=== PATIENT | female | born 1965 | race Caucasian/White ===

== ENCOUNTER 2022-02-22 09:56 | Inpatient (IN) | payer BC, SELFPAY ==
[2022-02-22] VITALS (8 sets, daily range): BP systolic 112–159; BP diastolic 68–92; PULSE 70–90; RESP 16–20; TEMP 36.6–37.4; O2SAT 95–98; BMI 35.9
--- NOTE | ~2022-02-22 | MR_ITS ---
MRI OF THE BRAIN WITHOUT IV CONTRAST INDICATION: Stroke. COMPARISON: CTA head and neck 02/22/2022. TECHNIQUE: Multiplanar multisequence MR imaging of the brain was obtained without IV contrast. FINDINGS: As discussed on the previous CTA, there is an evolving acute infarct within the left parasagittal frontoparietal lobe in the left TAMIKO territory. Cytotoxic edema results in mild local cerebral sulcal effacement without midline shift. There is no hemorrhagic transformation. There is no hydrocephalus, extra-axial surface collection, or herniation. The major flow voids at the skull base are preserved. There is no intracranial hemorrhage on the gradient recalled echo acquisition. The midline structures are normal. The cerebellar tonsils are normally positioned. The cerebellum and brainstem are normal. The craniocervical junction is normal. Osseous marrow signal intensity is homogenous. The visualized soft tissues are unremarkable. MR/MR head/brain wo con IMPRESSION: As discussed on the previous CTA, there is an evolving acute infarct within the left parasagittal frontoparietal lobe in the left TAMIKO territory. Cytotoxic edema results in mild local cerebral sulcal effacement without midline shift. There is no hemorrhagic transformation.
--- NOTE | ~2022-02-22 | CT_ITS ---
EXAMINATION: CTA OF THE HEAD AND NECK CLINICAL INFORMATION: Right-sided weakness. COMPARISON: None. TECHNIQUE: Test bolus sequences followed by intravenous administration 85 mL of Omnipaque 350. Helical imaging was performed in the axial plane from the mediastinum to the skull vertex. Delayed postcontrast imaging of the head was also performed. The data was processed at the fastener technologist's workstation for generation of MIP sequences. Three-dimensional volume rendered reformatted images were also generated at an offline 3-D workstation. Stenoses are assessed in accordance with NASCET criteria unless otherwise indicated. This CT examination was performed using dose optimization techniques as appropriate, variously including the following: *Automated exposure control *Adjustment of mA and/or kV according to patient size (this includes techniques or standardized protocols for targeted exams where dose is matched to indication/reason for exam; i.e. extremities or head) *Use of iterative reconstruction technique DLP: 2389 mGy-cm. FINDINGS: CT head: Superior to the lateral ventricles, there is loss of polnaco-white matter differentiation in the medial aspect of the left frontal lobe. There is an additional patchy area of loss of polanco-white matter differentiation affecting a portion of the left paracentral lobule and medial left parietal lobe posteriorly. There is no evidence of acute intracranial hemorrhage. No abnormal mass effect or midline shift is seen. No extra-axial fluid collections are identified. There is no abnormal enhancement. The ventricles are normal in size. The osseous structures and soft tissues are normal. The mastoid air cells and visualized portions of the paranasal sinuses are well aerated. CTA neck: The imaged aortic arch and origins of the great vessels are normal. The common carotid arteries are widely patent. The carotid bifurcations are normal. The cervical internal carotid arteries are normal. The vertebral arteries opacify normally and are of normal caliber. There is what may represent a 0.9 x 1 x 1.8 cm thyroglossal duct cyst between the midline hyoid bone and thyroid cartilage embedded within the strap muscles. Moderate multilevel cervical spondylosis noted. The imaged portions of the lungs are clear. A small calcified granuloma is visible in the right upper lobe. CTA head: There is significant stenotic disease and at least a partial occlusion in the A2 segment of the left TAMIKO vasculature. The distal portions of the left TAMIKO vasculature are difficult to assess resolve due to mixed arteriovenous timing of the contrast bolus. The intradural vertebral arteries and basilar artery are normal. The posterior cerebral arteries are widely patent. The internal carotid arteries are of normal caliber. The right TAMIKO and bilateral MCA vascular complexes bilaterally are normal. The venous sinuses opacify normally. CT/CT angio head neck IMPRESSION: 1. Areas of loss of polanco-white matter differentiation superior to the lateral ventricles in the medial left frontoparietal lobes, corresponding to the left TAMIKO vascular territory, most suspicious for areas of acute infarction. 2. Significant stenotic disease and at least partial occlusion in the A2 segment of the left TAMIKO vasculature. The distal portions of the left TAMIKO vasculature are difficult to assess resolve due to mixed arteriovenous timing of the contrast bolus. 3. Normal CT angiogram of the neck. 4. Suspected incidental 0.9 x 1 x 1.8 cm thyroglossal duct cyst. 5. Imaging findings reported to HENOK Sims at 3:45 PM on 02/22/2022.
--- NOTE | 2022-02-22 12:29 | ED_ITS ---
HPI - General Adult General Chief complaint: General Medical Stated complaint: R Leg Numbness No Injury Time Seen by Provider: 02/22/22 12:28 Source: patient Mode of arrival: ambulatory Limitations: no limitations History of Present Illness HPI narrative: 56-year-old female no significant past medical history presents to the emergency department, with her , for complaints of right leg weakness and heavine ss with difficulty ambulating starting around 11 a.m. yesterday. She states she had difficulty with ambulation and was dragging the leg, however; she was able to walk around [place] 2-3 times with improvement in her ambulation at that time per patient. She also reports she had right arm weakness, which has resolved at this time. She denies any decreased sensation, pins and needle sensation, or p ain in her right lower extremity. She denies any back discomfort, loss of bowel or bladder, urinary hesitancy, weakness and left lower extremity, headache, vision changes. She denies any trauma or known injury. Related Data Home Medications Medication Instructions Recorded Confirmed No Known Home Meds 02/22/22 02/22/22 Allergies Allergy/AdvReac Type Severity Reaction Status Date / Time No Known Allergies Allergy Verified 02/22/22 10:35 Review of Systems Review of Systems: In addition to documented HPI above, the additional ROS was obtained: CONSTITUTIONAL: Denies fever, chills, fatigue, headache, night sweats, or weight loss EYES: Denies vision changes, eye pain, swelling, redness, foreign body, discharge ENT: Hearing normal. Denies sore throat, swallowing difficulty, congestion, ear pain, no hoarseness CV: Denies chest pain or epigastric pain. No edema, palpitations, or dyspnea on exertion RESP: Denies shortness of breath. Denies cough, wheezing, dyspnea. Denies smoke exposure GI: .Denies abdominal pain. Denies nausea, vomiting, constipation or diarrhea. No melena or hematochezia. : Denies irregular bleeding, and dysuria, urinary frequency, urinary incontinence/retention, urgency. Denies flank pain, hematuria MSK: Denies recent trauma, joint swelling or pain SKIN: Denies no lesions, rashes, or sores NEURO: Denies new numbness, tingling, dizziness, paresthesias. No loss of consciousness. Denies headache ENDOCRINE: Denies unexpected weight loss. Denies polyuria, polydipsia. No temperature intolerance HEME/ONC: Denies bleeding disorders, easy bruising, or lymphadenopathy PSYCH: Denies anxiety/panic, depression, SI/HI, or social issues. Yes all other systems are reviewed and are negative PMFSH Past Medical History Attestation statement: The following information was validated with the patient. Source: old records reviewed and obtained from family Social History Social History Advance Directives: Yes Advance Directives Information Provided: No Advance Directives on File: No Physical Exam ED Vital Signs: Vital Signs - 24 hr 02/22/22 10:28 02/22/22 13:07 02/22/22 16:22 Temperature 99.3 F 98.3 F 98.5 F Pulse Rate 90 72 73 Respiratory Rate 20 16 18 Blood Pressure 142/89 H 146/81 H 153/70 H Pulse Oximetry 96 95 98 Oxygen Delivery Method Room Air Room Air Room Air BMI result Body Mass Index 35.9 Const General: cooperative, alert and awake Nutritional Appearance: well nourished Orientation/consciousness: patient oriented x3 Limitations: physical limitations [facility] Head: Yes normal to inspection, Yes normocephalic and Yes atraumatic Ears: hearing grossly normal bilaterally and external ears normal General nose exam: Normal external nose present and Normal nares present Face and sinus: Yes normal facial exam and Yes face symmetric Mouth: Normal oral and palatal mucosa present Teeth and gingiva: dentition normal Throat: Yes posterior oropharynx normal and Yes uvula midline Eyes General: appearance normal, both eyes and all related structures Visual Lobato: normal visual lobato by confrontation Alignment and Position: alignment normal Periorbital: periorbital findings normal Eyelids: Yes eyelids normal Conjunctivae: conjunctivae normal Sclerae: sclerae normal Corneas: corneas normal Pupils: Equal, round and reactive pupils present EOM: EOMs intact bilaterally Neck Neck: Yes normal visual inspection, Yes full ROM and Yes no lymphadenopathy Chest Chest palpation & inspection: normal inspection of the chest Resp Effort & Inspection: normal respiratory effort and not labored Auscultation: clear to auscultation bilaterally, no crackles, no rhonchi and no wheezes Cardio Rate: regular rate Rhythm: regular rhythm GI Inspection: Yes normal to inspection Palpation (GI): Soft to palpation and nontender Auscultation: normal bowel sounds General: Yes no CVA tenderness Back/Spine/Pelvis Back: no CVA tenderness Cervical Spine: cervical ROM normal Thoracic/Lumbar Spine: thoraco-lumbar ROM normal, No mass, No thoracic spinal tenderness and No lumbar spinal tenderness Sacrum: no ecchymosis Skin General skin exam: no rashes or lesions noted Neuro General: patient oriented x3 Cranial nerves: Yes Equal, round and reactive pupils present, Yes Normal facial strength present, Yes Midline tongue present, Yes Ability to bilaterally rotate head present and Yes Ability to bilaterally elevate shoulders present Cognition (Neuro): normal cognition Gait exam (Neuro): Ataxic gait present Motor exam (neuro): Other motor observations present (strength 5/5 BUE and LLE. strength 2/5 in RLE) Extrem General: Yes normal to inspection Right upper extremity: normal to inspection, full ROM and normal capillary refill Left upper extremity: normal to inspection, full ROM and normal capillary refill Right lower extremity: normal to inspection and normal capillary refill; no edema and joint enlargement noted Left lower extremity: normal to inspection, full ROM and normal capillary refill Psych Appearance: grossly normal Mental Status: mental status grossly normal Speech and movement: Normal speech and movement present Affect: normal affect Attitude: cooperative Thought process: Normal thought process present Thought content: Normal thought content present Insight: Good insight present (Psych) Judgement: Good judgement present (Psych) NIH Stroke Scale Internal: Initial- Upon Arrival Level of Consciousness: Alert Level of Consciousness Questions: Answers both questions correctly Level of Consciousness Commands: Performs both tasks correctly Best Gaze: Normal Visual: No visual loss Facial Palsy: Normal Motor Arm (Right): No drift Motor Arm (Left): No drift Motor Leg (Right): Some effort against gravity Motor Leg (Left): No drift Limb Ataxia: Present in one limb Sensory: Normal Best Language: No aphasia Dysarthia: Normal Extinction and Inattention: No abnormality Score: 3 Course Course Course Narrative: 1250: CTA head and blood work ordered to rule in/out stroke, MS, or other intracranial pathology based on HPI and PE. 1430: CT completed and pending read 1545: Critical CTA head result called in to me by Dr Lemus. Pt with areas of loss of polanco-white matter differentiation superior to the lateral ventricles in the medial left frontoparietal lobes, corresponding to the left TAMIKO vascular territory, most suspicious for areas of acute infarction and significant stenotic disease and at least partial occlusion in the A2 segment of the left TAMIKO vasculature. The distal portions of the left TAMIKO vasculature are difficult to assess resolve due to mixed arteriovenous timing of the contrast bolus. Last known well time at 11 am 02/21/22 and pt is not a candidate at this time for TPA as symptom onset is greater than 29 hours ago. ASA 81 mg ordered. Coags, lipids, A1c, and covid ordered. EKG ordered to rule out afib, as initial complaint was not cardiac related EKG was not done at initial evaluation. 1615: EKG NSR with inferior infarct, age undetermined. No previous EKGs to compare to. Discussed patient with hospitalist, Dr. Dupree, who agrees to admit the patient. 1715: Patient able to swallow thin liquids without issue. Patient educated to take small bites and chew well being mindful of swallowing. Medications Administered Discontinued Medications Generic Name Dose Route Start Last Admin Trade Name Freq PRN Reason Stop Dose Admin Aspirin 81 mg 02/22/22 15:54 02/22/22 16:56 Aspirin 81 Mg Tab.Chew PO 02/22/22 15:55 81 mg ONCE ONE Administration Iohexol 100 ml 02/22/22 14:59 02/22/22 14:59 Iohexol 350 Mg/Ml 100 Ml Infus..Btl IV 02/22/22 15:00 70 ml ONCE ONE Administration Medical Decision Making Medical Decision Making MDM Narrative: 56-year-old female no significant past medical history presents to the emergency department, with her , for complaints of right leg weakness and heaviness with difficulty ambulating starting around 11 a.m. yesterday with difficulty ambulating and sensation of dragging her leg. Physical exam with right leg weakness with 2/5 strength. Moving BUE and LLE with good 5/5 strength. Pt ambulating with assist of her with ataxic gait. No facial asymmetry, equal strength with shoulder shrug, hand grasps, and arm strength. Initial blood work unremarkable. CTA completed showing areas of loss of polanco-white matter differentiation superior to the lateral ventricles in the medial left frontoparietal lobes, corresponding to the left TAMIKO vascular territory, most maria spicious for areas of acute infarction and significant stenotic disease and at least partial occlusion in the A2 segment of the left TAMIKO vasculature. EKG NSR 73 bpm with inferior infarct, age undetermined: no previous EKGs available for review. Additional blood work ordered for coags, A1c, lipids. Covid screen sent. Plan for admission for further treatment and management. HPI, PE, diagnostics, and plan reviewed with patient and family an on board with plan for admission. Discussed with hospitalist, Dr. Dupree, who agrees to admit the patient. Lab Data MDM Lab Attestation statement: I reviewed the patient's lab results. Result Diagrams: 02/22/22 13:30 02/22/22 13:30 Labs: Lab Results 02/22/22 02/22/22 02/22/22 Range/Units 13:29 13:30 13:30 WBC 8.1 (4.8-10.8) X10*3/uL RBC 4.44 (4.20-5.50) X10*6/uL Hgb 13.7 (12.0-16.0) g/dl Hct 41.1 (37.0-47.0) % MCV 92.6 (80.0-98.0) fL MCH 30.9 (27.0-33.0) pg MCHC 33.3 (31.0-35.0) g/dl RDW 13.2 (11.0-16.0) % Plt Count 217 (160-400) X10*3/uL MPV 11.0 (9.4-12.3) fL Immature Gran % (Auto) 0.4 (0.0-0.4) % Neut % (Auto) 69.5 (45-73) % Lymph % (Auto) 23.0 (20-40) % [place] % (Auto) 5.7 (2-11) % Eos % (Auto) 0.7 (0-4) % Baso % (Auto) 0.7 (0-2) % Lymph # (Auto) 1.9 (1.2-4.9) X10*3/uL [place] # (Auto) 0.5 (0.1-1.2) X10*3/uL Eos # (Auto) 0.1 (0.0-0.4) X10*3/uL Baso # (Auto) 0.1 (0.0-0.2) X10*3/uL Abs Immat Gran (auto) 0.03 (0.00-0.03) X10*3/uL Absolute Neuts (auto) 5.6 (2.0-8.3) x10*3/uL Absolute Nucleated RBC 0.000 (0.0-0.012) X10*3/uL Nucleated RBC % (auto) 0.0 (0.0-0.2) /100WBC ESR 7 (0-20) MM/HR Sodium 140 (135-145) mmol/L Potassium 4.2 (3.3-5.1) mmol/L Chloride 105 (96-108) mmol/L Carbon Dioxide 26 (22-29) mmol/L Anion Gap 13 (12-20) BUN 15 (9-16) mg/dL Creatinine 0.75 (0.5-1.4) mg/dL Estim Creat Clear Calc 114.2 Estimated GFR > 60 Random Glucose 94 (60-115) mg/dL Calcium 10.1 (8.4-10.2) mg/dL Total Bilirubin 0.5 (0.0-1.0) mg/dL AST 16 (5-31) U/L ALT 21 (0-31) U/L Alkaline Phosphatase 85 (39-117) U/L Total Protein 7.4 (6.5-8.0) g/dL Albumin 4.7 (3.5-5.0) g/dL Radiology Impression Discussion of test interpretation with radiology: I have reviewed the radiologist's reading. Radiologist Impression: EXAMINATION: CTA OF THE HEAD AND NECK CLINICAL INFORMATION: Right-sided weakness. COMPARISON: None. TECHNIQUE: Test bolus sequences followed by intravenous administration 85 mL of Omnipaque 350. Helical imaging was performed in the axial plane from the mediastinum to the skull vertex. Delayed postcontrast imaging of the head was also performed. The data was processed at the biotechnologist's workstation for generation of MIP sequences. Three-dimensional volume rendered reformatted images were also generated at an offline 3-D workstation. Stenoses are assessed in accordance with NASCET criteria unless otherwise indicated. This CT examination was performed using dose optimization techniques as appropriate, variously including the following: *Automated exposure control *Adjustment of mA and/or kV according to patient size (this includes techniques or standardized protocols for targeted exams where dose is matched to indication/reason for exam; i.e. extremities or head) *Use of iterative reconstruction technique DLP: 2389 mGy-cm. FINDINGS: CT head: Superior to the lateral ventricles, there is loss of polanco-white matter differentiation in the medial aspect of the left frontal lobe. There is an additional patchy area of loss of polanco-white matter differentiation affecting a portion of the left paracentral lobule and medial left parietal lobe posteriorly. There is no evidence of acute intracranial hemorrhage. No abnormal mass effect or midline shift is seen. No extra-axial fluid collections are identified. There is no abnormal enhancement. The ventricles are normal in size. The osseous structures and soft tissues are normal. The mastoid air cells and visualized portions of the paranasal sinuses are well aerated. ? CTA neck: The imaged aortic arch and origins of the great vessels are normal. The common carotid arteries are widely patent. The carotid bifurcations are normal. The cervical internal carotid arteries are normal. The vertebral arteries opacify normally and are of normal caliber. There is what may represent a 0.9 x 1 x 1.8 cm thyroglossal duct cyst between the midline hyoid bone and thyroid cartilage embedded within the strap muscles. Moderate multilevel cervical spondylosis noted. The imaged portions of the lungs are clear. A small calcified granuloma is visible in the right upper lobe. CTA head: There is significant stenotic disease and at least a partial occlusion in the A2 segment of the left TAMIKO vasculature. The distal portions of the left TAMIKO vasculature are difficult to assess resolve due to mixed arteriovenous timing of the contrast bolus. The intradural vertebral arteries and basilar artery are normal. The posterior cerebral arteries are widely patent. The internal carotid arteries are of normal caliber. The right TAMIKO and bilateral MCA vascular complexes bilaterally are normal. The venous sinuses opacify normally. CT/CT angio head neck IMPRESSION: 1.? Areas of loss of polanco-white matter differentiation superior to the lateral ventricles in the medial left frontoparietal lobes, corresponding to the left TAMIKO vascular territory, most suspicious for areas of acute infarction. 2.? Significant stenotic disease and at least partial occlusion in the A2 segment of the left TAMIKO vasculature. The distal portions of the left TAMIKO vasculature are difficult to assess resolve due to mixed arteriovenous timing of the contrast bolus. 3.? Normal CT angiogram of the neck. 4.? Suspected incidental 0.9 x 1 x 1.8 cm thyroglossal duct cyst. 5.? Imaging findings reported to HENOK Sims at 3:45 PM on 02/22/2022. ? Dictated By: HERMINIA LEMUS MD Signed By: <Electronically signed by HERMINIA LEMUS MD in [place] 02/22/22 1546 DD/ 1500 TD/TT:? Wardrobe Stylist: DOMINIC Core Measures AMI core measures followed: Yes Discharge Plan Discharge Clinical Impression: Stroke Patient Disposition: Admitted As Inpatient Prescriptions: No Action No Known Home Meds
[2022-02-22 13:34] LABS: MANUAL DIFF FLAG NO
[2022-02-22 13:39] LABS: Basophils Absolute Auto 0.1 X10*3/uL (0.0-0.2); Basophils Percent Auto 0.7 % (0-2); Eosinophils Absolute Auto 0.1 X10*3/uL (0.0-0.4); Eosinophils Percent Auto 0.7 % (0-4); Hematocrit 41.1 % (37.0-47.0); Hemoglobin 13.7 g/dl (12.0-16.0); Imm Gran Abs Auto 0.03 X10*3/uL (0.00-0.03); Imm Gran Pct Auto 0.4 % (0.0-0.4); Lymphocytes Absolute Auto 1.9 X10*3/uL (1.2-4.9); Mean Corpuscular HGB Conc 33.3 g/dl (31.0-35.0); Mean Corpuscular Hemoglobin 30.9 pg (27.0-33.0); Mean Corpuscular Volume 92.6 fL (80.0-98.0); Monocytes Absolute Auto 0.5 X10*3/uL (0.1-1.2); Monocytes Percent Auto 5.7 % (2-11); Neutrophils Absolute Auto 5.6 x10*3/uL (2.0-8.3); Neutrophils Percent Auto 69.5 % (45-73); Platelet Count 217 X10*3/uL (160-400); Red Blood Count 4.44 X10*6/uL (4.20-5.50); Red Cell Distribution Width 13.2 % (11.0-16.0); White Blood Count 8.1 X10*3/uL (4.8-10.8)
[2022-02-22 13:55] LABS: Alanine Aminotransferase 21 U/L (0-31); Albumin Level 4.7 g/dL (3.5-5.0); Alkaline Phosphatase 85 U/L (39-117); Anion Gap 13 (12-20); Aspartate Amino Transferase 16 U/L (5-31); Bilirubin Total 0.5 mg/dL (0.0-1.0); Blood Urea Nitrogen 15 mg/dL (9-16); Calcium 10.1 mg/dL (8.4-10.2); Carbon Dioxide 26 mmol/L (22-29); Chloride 105 mmol/L (96-108); Creatinine Clr Calc Pharmacy 114.2; Estimated Glomerular Filt Rate > 60; Glucose Random 94 mg/dL (60-115); Potassium 4.2 mmol/L (3.3-5.1); Sodium 140 mmol/L (135-145); Total Protein 7.4 g/dL (6.5-8.0)
[2022-02-22 14:45] LABS: Erythrocyte Sedimentation Rate 7 MM/HR (0-20)
[2022-02-22] MEDS: iohexoL 350 MG/ML 100 ML INFUS..BTL IV (14:59)
--- NOTE | 2022-02-22 15:57 | ECG_ITS ---
Test Reason : R LEG NUMBNESS Blood Pressure : / mmHG Vent. Rate : 073 BPM Atrial Rate : 073 BPM P-R Int : 150 ms QRS Dur : 078 ms QT Int : 392 ms P-R-T Axes : 062 -15 000 degrees QTc Int : 431 ms Normal sinus rhythm cannot exclude old Inferior infarct , age undetermined Abnormal ECG No previous ECGs available Referred By: Samantha Aragon Electronically Signed By:ANTOINE DOSS
[2022-02-22] MEDS: Aspirin 81 MG TAB.CHEW PO (16:56)
--- NOTE | 2022-02-22 16:57 | PHA.MEDREC ---
Pharmacy Consult ? Medication Reconciliation Pharmacy has completed the medication reconciliation.
[2022-02-22 17:43] LABS: Prothrombin Time 10.9 SEC (10.0-13.1)
--- NOTE | 2022-02-22 17:43 | P.HPHOSP_ITS ---
History of Present Illness Date of Service: 02/22/22 Chief Complaint: right sided weakness 56 year old female with no medical issue who comes with right lower extremity that she first noticed during the day yersterday around 11 am, she had difficulty walking and was draging the foot, this got better and was able to later go to [facility] and walk around, weakness returned today and alarmed her prompting her to come to ED. CTA head and neck suggest possible acute infarct. Review of Systems Review of Systems: weakness in right leg, heavines no headache, no trouble speaking, no trouble seeing Yes all other systems are reviewed and are negative PMFSH Pertinent family history: maternal aunt with stroke Social History Advance Directives: Yes Advance Directives Information Provided: No Advance Directives on File: No Meds Allergies Allergy/AdvReac Type Severity Reaction Status Date / Time No Known Allergies Allergy Verified 02/22/22 10:35 Active Medications: Current Medications Pharmacy Consult (Consult Rx Perform Med Rec) 1 each MISCELLANE ONCE PRN PRN Reason: Consult order Home Medications Medication Instructions Recorded Confirmed Last Taken Type No Known Home Meds 02/22/22 02/22/22 Unknown History Physical Exam Vital Signs and Narrative: Vital Signs: Last Vital Signs Temp 98.5 F 02/22/22 16:22 Pulse 73 02/22/22 16:22 Resp 18 02/22/22 16:22 BP 153/70 H 02/22/22 16:22 Pulse Ox 98 02/22/22 16:22 O2 Del Method 02/22/22 16:22 BMI result Body Mass Index 35.9 Const: Other: Constitutional: Alert, in no distress, overweight. Mental Status: Oriented to person, place and time. Eyes: Pupils are equal, round and reactive to light. Ear, Nose and Throat: Oropharynx clear, mucous membranes moist. Ears and nose without eformities. Trachea midline. Respiratory: Clear to auscultation. No wheezing, rales or rhonchi. Cardiovascular: S1 S2 regular. No murmurs, rubs or gallops. Gastrointestinal: Abdomen soft, non-tender, non-distended. Normal bowel sounds.? Neurologic: Cranial nerves II-XII grossly intact. Strenght in the right leg is signficantly weak compare to the left, arm strenght are equal Skin: No rashes or lesions.? Musculoskeletal: No cyanosis or clubbing. Psychiatric: Normal mood and affect? Results Labs CBC and Chem 7: 02/22/22 13:30 02/22/22 13:30 Labs: Laboratory Results - last 24 hr 02/22/22 02/22/22 02/22/22 13:29 13:30 13:30 MCV 92.6 MCH 30.9 MCHC 33.3 RDW 13.2 Plt Count 217 MPV 11.0 Immature Gran % (Auto) 0.4 Neut % (Auto) 69.5 Lymph % (Auto) 23.0 [place] % (Auto) 5.7 Eos % (Auto) 0.7 Baso % (Auto) 0.7 Lymph # (Auto) 1.9 [place] # (Auto) 0.5 Eos # (Auto) 0.1 Baso # (Auto) 0.1 Abs Immat Gran (auto) 0.03 Absolute Neuts (auto) 5.6 Absolute Nucleated RBC 0.000 Nucleated RBC % (auto) 0.0 ESR 7 Anion Gap 13 Estim Creat Clear Calc 114.2 Estimated GFR > 60 Random Glucose 94 Calcium 10.1 Total Bilirubin 0.5 AST 16 ALT 21 Alkaline Phosphatase 85 Total Protein 7.4 Albumin 4.7 Imaging Radiologist's Impressions: Impressions Head/Neck CTA 02/22/22 15:00 IMPRESSION: 1. Areas of loss of polanco-white matter differentiation superior to the lateral ventricles in the medial left frontoparietal lobes, corresponding to the left TAMIKO vascular territory, most suspicious for areas of acute infarction. 2. Significant stenotic disease and at least partial occlusion in the A2 segment of the left TAMIKO vasculature. The distal portions of the left TAMIKO vasculature are difficult to assess resolve due to mixed arteriovenous timing of the contrast bolus. 3. Normal CT angiogram of the neck. 4. Suspected incidental 0.9 x 1 x 1.8 cm thyroglossal duct cyst. 5. Imaging findings reported to HENOK Sims at 3:45 PM on 02/22/2022. Assessment and Plan (1) Stroke: Status: Acute Plan 56/F with no signficnat past medical history here with right leg weakness and possible finding of CT of acute stroke, not candidate for tpa d/t delay in presentation. Clinical finding suggestive of stroke but CT finding not impressive. Plan: Stroke: get MRI, ASA, Lipitor, PT/OT, Neuro eval, watch BP, Neuro checks. HLD--Chol 283, LDL 202--add Lipitor Elevated BP--monitor and no meds for now Lovneox for DVT prophylaxis. Full code Admission to span at least 2 midnights for management of acute stroke Time Spent With Patient Time: Total time managing care of this patient today ____ minutes. Quality Stroke Does the patient have a stroke diagnosis?: Yes Reason for No Anti-thrombotic by Day Two: N/A - Med Ordered VTE Prior VTE?: No VTE Risk Level:: Medical - low VTE Device Contraindication: Treatment Not Indicated VTE Drug Contraindication: N/A - Med Ordered
[2022-02-22 17:55] LABS: COVID-19 Test Negative (Negative); Cholesterol 283 mg/dL; HDL Cholesterol 52 mg/dL; IDNOW Serial# 16C4AD1C; LDL Cholesterol Calculated 202 mg/dl; Triglycerides 145 mg/dL
[2022-02-22] MEDS: Enoxaparin Sodium 40 MG/0.4 ML SYRINGE SUBCUT (19:23)
[2022-02-22] MEDS: Atorvastatin Calcium 40 MG TABLET PO (22:04)
--- NOTE | 2022-02-22 23:03 | PC.NURSE ---
Patient is alert and oriented x4. Patient denies any pain at present. No s/s of distress noted. Patient is resting in bed, call valdez within patient's reach.
[2022-02-23] VITALS (8 sets, daily range): BP systolic 119–150; BP diastolic 70–96; PULSE 68–86; RESP 12–20; TEMP 36.3–37.1; O2SAT 95–98; BMI 35.9
--- NOTE | 2022-02-23 03:57 | PC.NURSE ---
Patient requested to use a restroom. Patient required assist of 1 person and w/c d/t weakness in right leg. Patient assisted back into bed. Patient noted to be independent with bed mobility. Patient instructed to reposition herself every hour while she is awake to prevent skin breakdown. Patient requested a snack. Swallow evaluation completed, no issues with swallowing/secretion management noted. Patient provided turkey sandwich, cheese stick, and cranberry juice.
[2022-02-23 05:22] LABS: Estimated Average Glucose 111 mg/dL; Hemoglobin A1c % 5.5 %
--- NOTE | 2022-02-23 06:29 | MHC.EDTECH ---
PT SLEPT ALL NIGHT GOT UP TO USE BATHROOM X 1 ,VOID LARGE AMOUNT ,HAD A SNACK .
[2022-02-23 07:25] LABS: Cholesterol 238 mg/dL; HDL Cholesterol 42 mg/dL; LDL Cholesterol Calculated 162 mg/dl; Triglycerides 174 mg/dL
[2022-02-23] MEDS: Aspirin Enteric Coated 81 MG TABLET.DR PO (08:55)
--- NOTE | 2022-02-23 09:02 | PC.NURSE ---
MRI THIS MORNING, AMB WITH WALKER THIS WITH PT/OT CAN BEAR WEIGHT ON RT LEG IS UNABLE TO MOVE IT INDEPENDENTLY
--- NOTE | 2022-02-23 11:29 | HO.PM.IMPN ---
Subjective Subjective Date of Service: 02/23/22 Interval History: f/u on stroke, has pesistent weakness in right leg, MRI confirms stroke Review of Systems right leg weakness Physical Exam Vital Signs: Vital Signs: Last Vital Signs Temp 98.8 F 02/23/22 08:51 Pulse 71 02/23/22 08:51 Resp 16 02/23/22 08:51 BP 134/70 02/23/22 08:51 Pulse Ox 96 02/23/22 08:51 O2 Del Method 02/23/22 08:51 BMI result Body Mass Index 35.9 Const: Other: General: AO X 3, no acute distress Resp: CTA bilateral CVS: S1,S2,RRR GI: +BS, NT, no distention Skin: No rash Neuro: 2/5 strenght in right leg Psych: appropriate affect Objective Data Active Medications Acetaminophen (Acetaminophen 325 Mg Tablet) 650 mg PO Q6H PRN PRN Reason: Pain, Mild (Pain Scale 1-3) Aspirin (Aspirin Enteric Coated 81 Mg Tablet.) 81 mg PO DAILY [facility] Last Admin: 02/23/22 08:55 Dose: 81 mg Documented By: INDU Atorvastatin Calcium (Atorvastatin Calcium 40 Mg Tablet) 40 mg PO BEDTIME [facility] Last Admin: 02/22/22 22:04 Dose: 40 mg Documented By: SINCERE Enoxaparin Sodium (Enoxaparin Sodium 40 Mg/0.4 Ml Syringe) 40 mg SUBCUT Q24H [facility] Last Admin: 02/22/22 19:23 Dose: 40 mg Documented By: SINCERE Pharmacy Consult (Consult Rx Perform Med Rec) 1 each MISCELLANE ONCE PRN PRN Reason: Consult order Labs CBC & Chem 7: 02/22/22 13:30 02/22/22 13:30 Labs: Laboratory Results - last 24 hr 02/22/22 02/22/22 02/22/22 13:29 13:30 13:30 MCV 92.6 MCH 30.9 MCHC 33.3 RDW 13.2 Plt Count 217 MPV 11.0 Immature Gran % (Auto) 0.4 Neut % (Auto) 69.5 Lymph % (Auto) 23.0 Harper % (Auto) 5.7 Eos % (Auto) 0.7 Baso % (Auto) 0.7 Lymph # (Auto) 1.9 Harper # (Auto) 0.5 Eos # (Auto) 0.1 Baso # (Auto) 0.1 Abs Immat Gran (auto) 0.03 Absolute Neuts (auto) 5.6 Absolute Nucleated RBC 0.000 Nucleated RBC % (auto) 0.0 ESR 7 PT INR Anion Gap 13 Estim Creat Clear Calc 114.2 Estimated GFR > 60 Random Glucose 94 Estimat Average Glucose Hemoglobin A1c % Calcium 10.1 Total Bilirubin 0.5 AST 16 ALT 21 Alkaline Phosphatase 85 Total Protein 7.4 Albumin 4.7 Triglycerides Cholesterol LDL Cholesterol, Calc HDL Cholesterol COVID-19 (ALIX) COVID-19 [employer] 02/22/22 02/22/22 02/22/22 17:22 17:22 17:22 MCV MCH MCHC RDW Plt Count MPV Immature Gran % (Auto) Neut % (Auto) Lymph % (Auto) Harper % (Auto) Eos % (Auto) Baso % (Auto) Lymph # (Auto) Harper # (Auto) Eos # (Auto) Baso # (Auto) Abs Immat Gran (auto) Absolute Neuts (auto) Absolute Nucleated RBC Nucleated RBC % (auto) ESR PT 10.9 INR 1.0 Anion Gap Estim Creat Clear Calc Estimated GFR Random Glucose Estimat Average Glucose 111 Hemoglobin A1c % 5.5 Calcium Total Bilirubin AST ALT Alkaline Phosphatase Total Protein Albumin Triglycerides 145 Cholesterol 283 LDL Cholesterol, Calc 202 HDL Cholesterol 52 COVID-19 (ALIX) COVID-19 [employer] 02/22/22 02/23/22 17:22 06:06 MCV MCH MCHC RDW Plt Count MPV Immature Gran % (Auto) Neut % (Auto) Lymph % (Auto) Harper % (Auto) Eos % (Auto) Baso % (Auto) Lymph # (Auto) Harper # (Auto) Eos # (Auto) Baso # (Auto) Abs Immat Gran (auto) Absolute Neuts (auto) Absolute Nucleated RBC Nucleated RBC % (auto) ESR PT INR Anion Gap Estim Creat Clear Calc Estimated GFR Random Glucose Estimat Average Glucose Hemoglobin A1c % Calcium Total Bilirubin AST ALT Alkaline Phosphatase Total Protein Albumin Triglycerides 174 Cholesterol 238 LDL Cholesterol, Calc 162 HDL Cholesterol 42 COVID-19 (ALIX) Negative COVID-19 Clin [employer] See Note Assessment and Plan (1) Stroke: Status: Acute Plan 56/F with no signficnat past medical history here with right leg weakness and possible finding of CT of acute stroke, not candidate for tpa d/t delay in presentation. Clinical finding suggestive of stroke but CT finding not impressive. Plan: Stroke: get MRI shows an evolving acute infarct within the left parasagittal frontoparietal lobe in the left TAMIKO territory. Cytotoxic edema results in mild local cerebral sulcal effacement without midline shift ASA, Lipitor, Neuro eval, watch BP, Neuro checks.? HLD--Chol 283, LDL 202--added Lipitor, echo PT/OT recommends acute inpatient rehab Elevated BP--monitor and no meds for now, BP is presently normal Lovneox for DVT prophylaxis. Full code need inaptient: management of acute stroke and evolving stroke as above and will need acute rehab Time Spent With Patient Time: Total time managing care of this patient today ____ minutes. Quality Stroke Does the patient have a stroke diagnosis?: Yes Reason for No Anti-thrombotic by Day Two: N/A - Med Ordered VTE Prior VTE?: No VTE Risk Level:: Medical - low VTE Device Contraindication: Treatment Not Indicated VTE Drug Contraindication: N/A - Med Ordered
--- NOTE | 2022-02-23 11:34 | P.CNNE_ITS ---
History of Present Illness Data of Consult Service Date: 02/23/22 Primary Care Provider: Gaurav Mora MD [facility] Reason for consult: Stroke 56 years old woman who reported that she had atrial fibrillation at age 50 but she was not on any anticoagulation came to hospital with new onset of right leg weakness that started a day before she came to hospital. There was no associated dizziness or headache or speech or language difficulty or hand weakness. Her leg was still weak. There was no pain. There was no alteration of consciousness. Review of Systems Review of Systems: No recent trauma neck pain or headache no palpitation or chest pain [facility] Social History Social History Alcohol intake: current Alcohol intake frequency: holidays/special occasions only Smoked in Last 30 Days: Yes Use of substances other than those prescribed or required for medical reasons: No Advance Directives: Yes Advance Directives Information Provided: No Advance Directives on File: No Meds Allergies Allergy/AdvReac Type Severity Reaction Status Date / Time No Known Allergies Allergy Verified 02/22/22 10:35 Active Medications: Current Medications Acetaminophen (Acetaminophen 325 Mg Tablet) 650 mg PO Q6H PRN PRN Reason: Pain, Mild (Pain Scale 1-3) Aspirin (Aspirin Enteric Coated 81 Mg Tablet.) 81 mg PO DAILY [facility] Last Admin: 02/23/22 08:55 Dose: 81 mg Atorvastatin Calcium (Atorvastatin Calcium 40 Mg Tablet) 40 mg PO BEDTIME [facility] Last Admin: 02/22/22 22:04 Dose: 40 mg Enoxaparin Sodium (Enoxaparin Sodium 40 Mg/0.4 Ml Syringe) 40 mg SUBCUT Q24H [facility] Last Admin: 02/22/22 19:23 Dose: 40 mg Pharmacy Consult (Consult Rx Perform Med Rec) 1 each MISCELLANE ONCE PRN PRN Reason: Consult order Home Medications Medication Instructions Recorded Confirmed Last Taken Type No Known Home Meds 02/22/22 02/22/22 Unknown History Physical Exam Vital Signs: Vital Signs: Last Vital Signs Temp 98.8 F 02/23/22 08:51 Pulse 71 02/23/22 08:51 Resp 16 02/23/22 08:51 BP 134/70 02/23/22 08:51 Pulse Ox 96 02/23/22 08:51 O2 Del Method 01/04/23 08:51 BMI result Body Mass Index 35.9 Neuro: Other: She was alert and awake with normal spontaneity of speech fluency comprehension and affect. Face was symmetrical. There was no pronator drift or hand weakness. She could not lift her right leg against gravity. She was able to wiggle toes and right leg. Right plantar was extensor. Otherwise examination was unremarkable. Results Labs CBC & Chem 7: 02/22/22 13:30 02/22/22 13:30 Labs: Short CBC 02/22/22 Range/Units 13:30 WBC 8.1 (4.8-10.8) X10*3/uL Hgb 13.7 (12.0-16.0) g/dl Hct 41.1 (37.0-47.0) % Plt Count 217 (160-400) X10*3/uL BMP 02/22/22 13:30 Sodium 140 Potassium 4.2 Chloride 105 Carbon Dioxide 26 BUN 15 Creatinine 0.75 Calcium 10.1 Liver Function 02/22/22 Range/Units 13:30 Total Bilirubin 0.5 (0.0-1.0) mg/dL AST 16 (5-31) U/L ALT 21 (0-31) U/L Alkaline Phosphatase 85 (39-117) U/L Albumin 4.7 (3.5-5.0) g/dL Multiple area of restricted diffusion in left anterior cerebral artery territory were noted. Otherwise FLAIR imaging did not reveal any chronic lesion. Also noted was left ACS stenosis. Assessment and Plan (1) Acute cerebral infarction: Status: Acute 56 years old woman with acute left anterior cerebral artery area embolic type infarction. CTA also suggested anterior cerebral artery stenosis but other arteries were okay and this artery usually was not involved in this type of disease suggesting that there really etiology of stroke might be different. She reported that she had atrial fibrillation at age 50. If this was correct, stroke could be related to cardiac source of embolism. At this time my recommendation is to put her on baby aspirin daily and clopidogrel 75 mg daily for next 2-3 months and during that time to appropriate cardiac evaluation to rule out atrial fibrillation. If needed, she could have internal loop recorder to make it a definitive diagnosis. In the meantime anti-platelet agent, blood p ressure control and statin should be the mainstay of treatment. She would need physical and occupational therapy for right leg weakness. Time Spent With Patient Time: Total time managing care of this patient today ____ minutes. Procedures Date of Service Date of Service: 02/23/22
--- NOTE | 2022-02-23 12:03 | MHC.CM.PN ---
pt seen in er pt and ot recommend acute rehab pt accepted at [facility] they are gpomng for auth pt can be dcd today according to
--- NOTE | 2022-02-23 12:04 | PC.NURSE ---
patient a&ox3, vss, pt denies pain/discomfort, acid purifier applied nsr on monitor, vss, pt had weakness to RLE- pt was able to lift and briefly hold RLE, pt ambulated with stby assist to bathroom with wheeled walker- pt was steady walking but notably dragged RLE. Call valdez within reach, will continue to monitor
--- NOTE | 2022-02-23 12:22 | MHC.STROKE ---
I MET WITH THE PATIENT TODAY TO DISCUSS HER STROKE DIAGNOSIS AND MRI RESULTS. DR. DE LUNA ROUNDED AT THE SAME TIME. WE DISCUSSED THE LOCATION OF HER STROKE AND CORRELATING SYMPTOMS. SHE ALSO MENTIONED THAT AT AGE 50 SHE HAD AN EPISODE OF AFIB. SHE DID NOT SEE A PULMONARY NURSE PRACTITIONER BUT DID FOLLOW UP WITH HER PCP AT THAT TIME. +FAMILY HISTORY OF HEART DISEASE. SHE QUIT SMOKING 2 YEARS AGO, SHE HAS A SEDENTARY JOB, WE REVIEWED HER BP, LIPID PANEL AND THE PLAN OF CARE. I ANSWERED ALL OF HER QUESTIONS. ALL OF THIS INFORMATION WAS REVIEWED WITH DR MICHELE AND DR. DE LUNA. DR. DE LUNA IS RECOMMENDING AN ECHO WITH BUBBLE AND AN INTERNAL IMPLANTABLE LOOP RECORDER.
--- NOTE | 2022-02-23 15:55 | PC.NURSE ---
patient a&ox3, pt moved to room 4 for comfort, denies pain/discomfort, vitals stable, awning maker and installer nsr, pt neuro intact, ambulated with assist to bathroom, will continue to monitor
--- NOTE | 2022-02-23 17:19 | PC.NURSE ---
patient a&ox3 monitoring tech nsr, pt neuro continues to be intact, pt rle is weaker than left- is able to lift/hold, denies pain/discomfort, call valdez within reach, will continue to monitor.
[2022-02-23] MEDS: Atorvastatin Calcium 40 MG TABLET PO (19:40)
[2022-02-23] MEDS: Enoxaparin Sodium 40 MG/0.4 ML SYRINGE SUBCUT (19:40)
[2022-02-24] VITALS (7 sets, daily range): BP systolic 102–127; BP diastolic 60–71; PULSE 62–89; RESP 12–18; TEMP 35.7–37.1; O2SAT 94–98
--- NOTE | 2022-02-24 07:00 | CA_ITS ---
Transthoracic Echocardiogram Patient (Last, First, Middle): Enedelia Villafana, Gender: Female Date of : 1965 Age: 56 Procedure Date: 02/24/2022 Procedure Type: Transthoracic Echocardiogram [place] [facility] [place] Height: 178. cm Weight: 113. kg BSA: 2.29 m2 Heart Rate: 71 bpm BP: 124 / 71 mmHg Performance Test Consultant: HILLARY Referring MD: Elroy Dupree MD Symptoms: stroke Study Quality: Good ECG Rhythm: Sinus Conclusions: - The left ventricular systolic function is normal. The calculated ejection fraction is 63% by biplane method. - No obvious valvular pathology seen on this study. - There is no evidence of interatrial shunt by agitated saline. Findings Left Ventricle Normal left ventricular cavity size. The left ventricular systolic function is normal. The calculated ejection fraction is 63% by biplane method. There is no evidence of regional wall motion abnormalities. Diastolic function is normal for age. There is mild septal asymmetric hypertrophy. Right Ventricle Normal right ventricular cavity size and systolic function. Atria Both atria are normal in size. There is no evidence of interatrial shunt by agitated saline. Bubble study negative during rest and valsalva. Aortic Valve There is a normal trileaflet aortic valve. There is no aortic valve stenosis. There is no aortic valve regurgitation. Mitral Valve The mitral valve appears normal. There is no mitral valve regurgitation. There is no mitral valve stenosis. Pulmonic Valve The pulmonic valve is likely normal. Tricuspid Valve Normal tricuspid valve structure. There is trace tricuspid valve regurgitation. There is no evidence of pulmonary hypertension. Great Vessels The aortic annulus, sinuses of valsalva, and asc aorta are normal in size. Venous The inferior vena cava is normal in size and collapses greater than 50% with inspiration. Pericardium/Pleural There is no evidence of pericardial effusion. Prior Study Comparison No prior study available for comparison. Recommendations, Care & Conclusions No obvious valvular pathology seen on this study. Measurements 2D Linear Measurements IVSd: 1.03 0.6-0.9/0.6-1.0 cm LVIDd: 5.01 3.9-5.3/4.2-5.9 cm LVIDd Index: 2.19 2.4-3.2/2.2-3.1 cm/m2 LVIDs: 3.20 2.0-3.6 cm LVPWd: 0.91 0.7-1.1 cm LA Diam: 3.30 2.7-3.8/3.0-4.0 cm LAIDs Index: 1.44 1.5-2.3 cm/m2 LV Mass: 217.75 67-162/88-224 g LV Mass Index: 95.09 43-95/49-115 g/m2 LVOT Diam: 2.20 3.0+(-)1.3 cm 2D Systolic Function EF 4C: 56.10 >55% EF 2C: 66.60 >55% EF BiP: 63.10 >55% Mitral Valve MV Pk E: 0.64 MV PK A: 0.69 MV Decel Time: 243.00 E/A: 0.90 E'Lateral: 9.68 E'Medial: 8.05 E/E' Med: 7.90 E/E' Lat: 6.60 PHT: 71.00 MVA PHT: 3.10 Decel Kimball: 2.63 Aortic Valve AoV Pk Carlos: 1.21 AoV Mn Carlos: 0.89 AoV VTI: 0.26 AoV Pk Grad: 6.00 Aov Mn Grad: 4.00 EVELIO Cont.VTI: 3.15 LVOT LVOT Pk Carlos: 1.05 LVOT Mn Carlos: 0.67 LVOT VTI: 0.21 LVOT Pk Grad: 4.00 LVOT Mn Grad: 2.00 LVOT Diam: 2.20 LVOT Area: 3.80 Diastolic Function MV Pk E: 0.64 MV Pk A: 0.69 E/A: 0.90 E'Medial: 8.05 E/E' Med: 7.90 E' Laterial: 9.68 E/E' Lat: 6.60 Right Ventricle TAPSE (mm): 23.00 TVS' Carlos: 13.80 Tricuspid Valve TR Pk Carlos: 1.99 TR Pk Grad: 16.00 RA Press: 3.00 RVSP: 19.00 Great Vessels Aorta Sinus of Valsalva: 3.90 2.0-3.5 cm Ao Asc: 3.80 2.1-3.4 cm Pulmonary Valve PV Pk Carlos: 0.87 Peak PV Grad: 3.00 Updated in Other Vendor System with Status of Final Louis Goel MD electronically signed on 02/24/2022 2:48:15 PM with status of Final
[2022-02-24] MEDS: Aspirin Enteric Coated 81 MG TABLET.DR PO (08:35)
--- NOTE | 2022-02-24 10:06 | P.CONCA_ITS ---
History of Present Illness History of Present Illness Date of Service: 02/24/22 Chief complaint: stroke Narrative: This is a cardiology consultation regarding atrial fibrillation. Patient apparently without any known medical issues coming with right lower extremity weakness and difficulty walking. Subsequently, diagnosed with stroke. We have been asked assess for atrial fibrillation. Patient states that she was told to have atrial fibrillation many years ago after a gynecological procedure. However, there was no follow-up after that. It seems that was a postoperative went but no known recurrences or other follow-up after that episode. Otherwise, no known cardiomyopathy or coronary disease or in fact anything cardiac related. She is generally healthy according to her. Apart from being overweight. Also a smoker. Review of Systems Review of Systems: Yes all other systems are reviewed and are negative Constitutional: Constitutional: Reports as per HPI Eyes: Eyes: Reports as per HPI ENT: Reports as per HPI Cardiovascular: Cardiovascular: Reports as per HPI, Denies acrocyanosis, Denies cool extremities, Denies chest pain, Denies leg edema, Denies lightheadedness, Denies palpitations and Denies dyspnea Respiratory: Respiratory: Reports as per HPI, Reports no additional respiratory complaints and Denies dyspnea Gastrointestinal: Gastrointestinal: Reports as per HPI and Reports no candice tional gastrointestinal complaints Genitourinary: Genitourinary: Reports as per HPI Musculoskeletal: Musculoskeletal: Reports no additional musculoskeletal complaints and Reports as per HPI Integumentary/Breasts: Skin/Breast: Reports system reviewed and no additional complaints, except as docu Neurologic: Reports system reviewed and no additional complaints, except as documented and Reports as per HPI Psychiatric: Psychiatric: Reports no additional psychiatric complaints and Reports as per HPI Endocrine: Endocrine: Reports no additional endocrine complaints, Reports as per HPI and Denies palpitations Hematologic/Lymphatic: Hematologic/Lymphatic: Reports no additional hematologic/lymphatic complaints and Reports as per HPI Allergic/Immunologic: Allergic/Immunologic: Reports no additional allergic/immunologic complaints and Reports as per HPI [facility] Past Medical History Medical History (Updated 02/24/22 @ 10:07 by Louis Goel MD) Atrial fibrillation Family History Family History (Updated 02/24/22 @ 10:08 by Louis Goel MD) Father Brain cancer Lung cancer Social History Social History Household Members: Family Housing: House Do you presently have visiting nurse or other home services: No Alcohol intake: current Alcohol intake frequency: holidays/special occasions only Patient Tobacco Use Status: Former Tobacco user Tobacco use type: Cigarette e-Cigarette/Vaping Use: Never Used Second Hand Smoke Exposure: No Advance Directives Date on File: 02/23/22 service: No Meds Allergies Allergy/AdvReac Type Severity Reaction Status Date / Time No Known Allergies Allergy Verified 02/22/22 10:35 Active Medications: Current Medications Acetaminophen (Acetaminophen 325 Mg Tablet) 650 mg PO Q6H PRN PRN Reason: Pain, Mild (Pain Scale 1-3) Aspirin (Aspirin Enteric Coated 81 Mg Tablet.) 81 mg PO DAILY [facility] Last Admin: 02/24/22 08:35 Dose: 81 mg Atorvastatin Calcium (Atorvastatin Calcium 40 Mg Tablet) 40 mg PO BEDTIME [facility] Last Admin: 02/23/22 19:40 Dose: 40 mg Enoxaparin Sodium (Enoxaparin Sodium 40 Mg/0.4 Ml Syringe) 40 mg SUBCUT Q24H [facility] Last Admin: 02/23/22 19:40 Dose: 40 mg Pharmacy Consult (Consult Rx Perform Med Rec) 1 each MISCELLANE ONCE PRN PRN Reason: Consult order Home Medications Medication Instructions Recorded Confirmed Last Taken Type No Known Home Meds 02/22/22 02/22/22 Unknown History Physical Exam Vital Signs: Vital Signs: Last Vital Signs Temp 96.2 F L 02/24/22 07:36 Pulse 68 02/24/22 09:33 Resp 14 02/24/22 07:36 BP 107/70 02/24/22 09:33 Pulse Ox 94 02/24/22 09:33 O2 Del Method 02/24/22 07:36 BMI result Body Mass Index 35.9 Const: General: comfortable and no acute distress Orientation/consciousness: patient oriented x3 HEENT: Other: Unremarkable Head: Yes normal to inspection Neck: Neck: Yes normal visual inspection Chest: Chest palpation & inspection: normal inspection of the chest Resp: Auscultation: clear to auscultation bilaterally Cardio: Palpation: normal PMI Heart sounds: S1 normal heart sound present, S2 normal heart sound present, no gallops, no murmurs and no rubs GI: Palpation (GI): Soft to palpation Back/Spine/Pelvis: Other: unremarkable Skin: General skin exam: no rashes or lesions noted Neuro: General: patient oriented x3 Extrem: General: Yes normal to inspection Psych: Mental Status: mental status grossly normal Objective Labs and Meds Result diagrams: 02/22/22 13:30 02/22/22 13:30 ECG Interpretation: EKG shows sinus rhythm at 73/Min; no significant ST-T changes and otherwise unremarkable. Normal PA and corrected QT. Assessment and Plan (1) Acute cerebral infarction: Status: Acute (2) Stroke: Status: Acute Plan Brain MRI reported to have evolving acute infarct in the left frontoparietal lobe. Head and neck CTA reported to have left TAMIKO vascular territory infarct. Also significant stenotic disease and partial occlusion of a 2 segment of left TAMIKO. Normal CT angio of the neck. There is a history of atrial fibrillation per patient few years ago as a postoperative episode. According neuro note, it was felt that the TAMIKO stenosis may not be the etiology for her stroke. Hence recommended to occur up for atrial fibrillation. Discussed about 30 day monitor as well as implantable loop recorder. We will probably start with 30 day monitor as initial test. This can be arranged post discharge. Otherwise, she is also due to get an echocardiogram with bubble study. Otherwise, aspirin and statins. Blood pressure seems stable. Discussed about smoking cessation with patient and she understands and states she will quit. As an outpatient, weight loss management. Will follow up with you. Discussed with Dr. Dupree. Time Spent With Patient Time: Total time managing care of this patient today 70 minutes. Procedures Date of Service Date of Service: 02/24/22
--- NOTE | 2022-02-24 15:00 | PC.NURSE ---
report received from overnight RN, digital media director per APR. pt reports improvement in her R leg weakness, neuro checks q2. Pt ambulating with a walker. pt down for ECHO accompanied by transport. Family at bedside. Pt back to room, call valdez within reach, saftey precautions in place, encouraged to call for assistance.
[2022-02-24] MEDS: Enoxaparin Sodium 40 MG/0.4 ML SYRINGE SUBCUT (17:58)
[2022-02-24] MEDS: Atorvastatin Calcium 40 MG TABLET PO (19:39)
[2022-02-25 06:55] VITALS: BP 122/78; PULSE 68; RESP 18; TEMP 36.3; O2SAT 95
[2022-02-25 07:38] VITALS: BP 131/71; PULSE 66; RESP 12; TEMP 35.9; O2SAT 97
[2022-02-25] MEDS: Aspirin Enteric Coated 81 MG TABLET.DR PO (09:00)
[2022-02-25 09:26] VITALS: BP 131/71; PULSE 66; O2SAT 97
--- NOTE | 2022-02-25 11:31 | PM.PNCARD ---
Subjective Subjective Date of Service: 02/25/22 Interval history: She states that she feels okay. No new complaints relevant to cardiac. Review of Systems Review of Systems Yes all other systems are reviewed and are negative Constitutional: Reports as per HPI Eyes: Reports as per HPI Reports as per HPI Cardiovascular: Reports as per HPI, Denies acrocyanosis, Denies cool extremities, Denies chest pain, Denies leg edema, Denies lightheadedness, Denies palpitations and Denies dyspnea Respiratory: Reports as per HPI, Reports no additional respiratory complaints and Denies dyspnea Gastrointestinal: Reports as per HPI and Reports no additional gastrointestinal complaints Genitourinary: Reports as per HPI Musculoskeletal: Reports no additional musculoskeletal complaints and Reports as per HPI Skin/Breast: Reports system reviewed and no additional complaints, except as docu Reports system reviewed and no additional complaints, except as documented and Reports as per HPI Psychiatric: Reports no additional psychiatric complaints and Reports as per HPI Endocrine: Reports no additional endocrine complaints, Reports as per HPI and Denies palpitations Hematologic/Lymphatic: Reports no additional hematologic/lymphatic complaints and Reports as per HPI Allergic/Immunologic: Reports no additional allergic/immunologic complaints and Reports as per HPI Physical Exam Vital Signs: Last Vital Signs Temp 96.7 F L 02/25/22 07:38 Pulse 66 02/25/22 09:26 Resp 12 02/25/22 07:38 BP 131/71 02/25/22 09:26 Pulse Ox 97 02/25/22 09:26 O2 Del Method 02/25/22 07:38 BMI result Body Mass Index 35.9 Const General: comfortable and no acute distress Orientation/consciousness: patient oriented x3 HEENT Other: Unremarkable Head: Yes normal to inspection Neck Neck: Yes normal visual inspection Chest Chest palpation & inspection: normal inspection of the chest Resp Auscultation: clear to auscultation bilaterally Cardio Palpation: normal PMI Heart sounds: S1 normal heart sound present, S2 normal heart sound present, no gallops, no murmurs and no rubs GI Palpation (GI): Soft to palpation Back/Spine/Pelvis Other: unremarkable Skin General skin exam: no rashes or lesions noted Neuro General: patient oriented x3 Extrem General: Yes normal to inspection Psych Mental Status: mental status grossly normal Objective Labs and Meds 02/22/22 13:30 02/22/22 13:30 Progress Note: A&P Assessment and plan (1) Acute cerebral infarction: Status: Acute (2) Stroke: Status: Acute Plan Echocardiogram with LVEF 63%. No significant valvular issues and negative bubble study. Telemetry is unremarkable and does not show any atrial fibrillation. With regard to further workup, we will do a 30 day monitor as an outpatient. Subsequently, possible implantable loop recorder. Will follow-up in clinic. Time Spent With Patient Time: Total time managing care of this patient today 30 minutes. Progress Note: Quality Stroke Does the patient have a stroke diagnosis?: Yes Reason for No Anti-thrombotic by Day Two: N/A - Med Ordered Procedures Date of Service Date of Service: 02/25/22
[2022-02-25 11:50] VITALS: BP 142/79; PULSE 72; RESP 14; TEMP 35.9; O2SAT 95
[2022-02-25 12:35] LABS: COVID-19 Test Negative (Negative); IDNOW Serial# 16C4AD1C
--- NOTE | 2022-02-25 13:17 | HO.PM.IMPN ---
Subjective Subjective Date of Service: 02/25/22 Interval History: f/u on stroke, has pesistent weakness in right leg, MRI confirms stroke, making progress Physical Exam Vital Signs: Vital Signs: Last Vital Signs Temp 96.7 F L 02/25/22 11:50 Pulse 72 02/25/22 11:50 Resp 14 02/25/22 11:50 BP 142/79 H 02/25/22 11:50 Pulse Ox 95 02/25/22 11:50 O2 Del Method 02/25/22 11:50 BMI result Body Mass Index 35.9 Const: Other: General: AO X 3, no acute distress Resp: CTA bilateral CVS: S1,S2,RRR GI: +BS, NT, no distention Skin: No rash Neuro: 2/5 strenght in right leg Psych: appropriate affect Objective Data Active Medications Acetaminophen (Acetaminophen 325 Mg Tablet) 650 mg PO Q6H PRN PRN Reason: Pain, Mild (Pain Scale 1-3) Aspirin (Aspirin Enteric Coated 81 Mg Tablet.) 81 mg PO DAILY [facility] Last Admin: 02/25/22 09:00 Dose: 81 mg Documented By: BESSY Atorvastatin Calcium (Atorvastatin Calcium 40 Mg Tablet) 40 mg PO BEDTIME [facility] Last Admin: 02/24/22 19:39 Dose: 40 mg Documented By: ALVIN Enoxaparin Sodium (Enoxaparin Sodium 40 Mg/0.4 Ml Syringe) 40 mg SUBCUT Q24H [facility] Last Admin: 02/24/22 17:58 Dose: 40 mg Documented By: BESSY Pharmacy Consult (Consult Rx Perform Med Rec) 1 each MISCELLANE ONCE PRN PRN Reason: Consult order Labs 02/22/22 13:30 02/22/22 13:30 Labs: Laboratory Results - last 24 hr 02/25/22 12:15 COVID-19 (ALIX) Negative COVID-19 Clin Com See Note Assessment and Plan (1) Stroke: Status: Acute Plan 56/F with no signficnat past medical history here with right leg weakness and possible finding of CT of acute stroke, not candidate for tpa d/t delay in presentation. Clinical finding suggestive of stroke but CT finding not impressive. Plan: Stroke: get MRI shows an evolving acute infarct within the left parasagittal frontoparietal lobe in the left TAMIKO territory. Cytotoxic edema results in mild local cerebral sulcal effacement without midline shift No afib noted, will have holter on outpatient basis ASA, Lipitor, Neuro eval, watch BP, Neuro checks.? HLD--Chol 283, LDL 202--added Lipitor, echo PT/OT recommends acute inpatient rehab Elevated BP--monitor and no meds for now, BP is presently normal Lovneox for DVT prophylaxis. Full code need inaptient: management of acute stroke and evolving stroke as above and will need acute rehab No rehab bed until tomorrow Time Spent With Patient Time: Total time managing care of this patient today ____ minutes. Quality Stroke Does the patient have a stroke diagnosis?: Yes Reason for No Anti-thrombotic by Day Two: N/A - Med Ordered VTE Prior VTE?: No VTE Risk Level:: Medical - low VTE Device Contraindication: Treatment Not Indicated VTE Drug Contraindication: N/A - Med Ordered
[2022-02-25 15:24] VITALS: BP 118/74; PULSE 78; RESP 17; TEMP 36.6; O2SAT 97
[2022-02-25] MEDS: Enoxaparin Sodium 40 MG/0.4 ML SYRINGE SUBCUT (18:06)
[2022-02-25 19:11] VITALS: BP 133/73; PULSE 85; RESP 16; TEMP 36.1; O2SAT 95
[2022-02-25] MEDS: Atorvastatin Calcium 40 MG TABLET PO (23:50)
--- NOTE | 2022-02-25 23:51 | PC.NURSE ---
2100 Med documented under previous day nurse due to error in logging out. Error corrected manually.
[2022-02-26 07:54] VITALS: BP 127/81; PULSE 77; RESP 18; TEMP 36.4; O2SAT 100
[2022-02-26] MEDS: Aspirin Enteric Coated 81 MG TABLET.DR PO (07:55)
--- NOTE | 2022-02-26 09:05 | MHC.CM.PN ---
PT MEDICALLY CLEARED [facility] D/C YESTERDAY HOWEVER PER [facility] PT IS SET UP FOR D/C AT [facility].
--- NOTE | 2022-02-26 09:56 | P.DS_ITS ---
DS: Providers Provider Date of Service: 02/25/22 Date of admission: 02/22/22 17:52 Primary care physician: Gaurav Mora MD Consults: 02/22/22 17:50 Consult to Neurology Routine Consulting Provider: Deborah Gallegos Reason for consultation: stroke Has provider been notified: No 02/24/22 09:47 Consult to Cardiology Routine Consulting Provider: Louis Goel Reason for consultation: stroke, concern Has provider been notified: Yes DS: Diagnosis Discharge Diagnosis (1) Acute cerebral infarction: Status: Acute (2) Stroke: Status: Acute DS: Summary Hospital Course Hospital Course: Chief Complaint: right sided weakness 56 year old female with no medical issue who comes with right lower extremity that she first noticed during the day yersterday around 11 am, she had difficulty walking and was draging the foot, this got better and was able to later go to [facility] and walk around, weakness returned today and alarmed her prompting her to come to ED. CTA head and neck suggest possible acute. Hospital course: Stroke with right leg weakness. CTA head and neck suggest possible acute. MRI shows??an evolving acute infarct within the left parasagittal frontoparietal lobe in the left TAMIKO territory. Cytotoxic edema results in mild local cerebral sulcal effacement without midline shift. On further questioning the patient reported that she had an episode of atrial fibrillation when she was 50. No atrial fibrillation has been detected here. She was evaluated by Neurology Dr. Gallegos and medical management has consisted of aspirin, Lipitor. Was seen by Physical therapy and recommended acute inpatient rehab. Overall her symptoms continued to improve. Dr. Gallegos further recommend that the patient gets implantable loop recorder for further evaluate. Patient was evaluated by Cardiology and she preferred started with Holter monitor and so an arrangement will be done by Dr. Goel. Echocardiogram with a bubble study showed no shunt or enter cardiac clot HLD--Chol 283, LDL 202--added Lipitor, echo PT/OT recommends acute inpatient rehab Elevated BP--monitor and no meds for now, BP is presently normal Time Spent with Patient Time attestation: Total time managing care of this patient today ____ minutes. Discharge coordination time: Greater than 30 minutes Quality: Safe Use of Opioids Does Pt have an Active Cancer Diagnosis on the Problem List?: No Quality: Stroke Does the patient have a stroke diagnosis?: Yes Reason for No Anti-thrombotic at DC: N/A - Med Ordered Reason for No Anticoagulant at DC: N/A - Med Ordered Reason Not Initiating IV-Tpa: Contraindicated Reason for No Anti-thrombotic by Day Two: N/A - Med Ordered Reason for No Statin at DC: N/A - Med Ordered Physical Exam Vital Signs: Vital Signs: Last Vital Signs Temp 96.7 F L 02/25/22 07:38 Pulse 66 02/25/22 09:26 Resp 12 02/25/22 07:38 BP 131/71 02/25/22 09:26 Pulse Ox 97 02/25/22 09:26 O2 Del Method 02/25/22 07:38 BMI result Body Mass Index 35.9 Discharge Plan Discharge Anticipated Discharge Date/Time: 02/25/22 11:47 Patient Disposition: Xfer Inpatient Rehab Fac Discharge Diagnosis: Acute ischemic stroke Referrals: Gaurav Mora MD [Primary Care Provider] - 1 Week Discharge Medications: No Action No Known Home Meds Discharge Orders: Discharge Order (Routine); Ordered 02/25/22 Ordered By: Elroy Dupree Diet: Advance to usual diet Activity on Discharge: As tolerated Stand Alone Forms: Patient Portal Discharge page Care Plan Goals: Full recovery and prevention of future stroke Health Concerns: Acute stroke, hyperlipidemia Plan of Treatment: Take aspirin and Lipitor as directed and follow up with your primary care doctor within a week. Follow-up with Dr. Goel for Holter monitoring placement. Assessment: As above
== END 2022-02-26 13:15 | DRG 45 ==
LOC: HO.ED 17:34 → HO.EDOVER 17:57 → HO.IMC 02-23 16:58
PROVIDERS: Emergency Medicine; Nurse Practitioner Family; Admitting Provider Internal Medicine; Emergency Provider Student in an Organized Health Care Education/Training Program; PCP Internal Medicine; Visit Provider Internal Medicine
DX: I63.422 Cerebral infarction due to embolism of left anterior cerebral artery (principal); G83.11 Monoplegia of lower limb affecting right dominant side; R29.703 NIHSS score 3; Z87.891 Personal history of nicotine dependence
CPT/HCPCS: 36415; 70496; 70498; 70551; 80053; 80061; 83036; 85025; 85610; 85652; 87635; 93005; 93306; 97110; 97112; 97116; 97162; 97165; 99285; J1650; Q9957; Q9967

== ENCOUNTER → 2022-04-28 11:00 | Outpatient (REF) | payer BC, SELFPAY | LOC: HO.CARD 11:00 | PROVIDERS: PCP Internal Medicine; Visit Provider Internal Medicine | DX: Z13.89 Encounter for screening for other disorder (principal) ==

== ENCOUNTER → 2022-05-23 14:11 | Outpatient (REF) | payer BC, SELFPAY ==
--- NOTE | 2022-05-23 14:13 | HM_ITS ---
Cardiac event monitor Indication: Paroxysmal atrial fibrillation Technique: Patient was hooked up to cardiac event monitor on 05/23/2022 for total period of 30 days till 06/20/2022. Compliance rate was 78.7% of the time. Rhythm strips for of adequate quality. Findings: Baseline was normal sinus rhythm with minimal heart rate of 51 beats per minute. Maximum heart rate 159 beats per min minute noted in short run of SVT and/or atrial fibrillation. There was total short episode of atrial fibrillation with total burden of less than 1%. Rare PVCs and PACs noted. Very short episodes of SVT noted lasting from 8-10 beats. Patient notified 5 times, 4 of the time she had no symptoms reported. One episode of symptom correlated with sinus rhythm. Conclusion: 1. Baseline was normal sinus rhythm 2. Paroxysmal atrial fibrillation with total burden less than 1% 3. Patient reported events correlated with sinus rhythm MTDD
== END ==
LOC: HO.CARD 14:11
PROVIDERS: PCP Internal Medicine; Visit Provider Internal Medicine
DX: I48.0 Paroxysmal atrial fibrillation (principal); I63.9 Cerebral infarction, unspecified
CPT/HCPCS: 93270

== ENCOUNTER → 2022-07-05 08:26 | Outpatient (BNVA) | payer BC, SELFPAY | PROVIDERS: PCP Internal Medicine; Referring Provider Internal Medicine; Visit Provider Internal Medicine | DX: I48.0 Paroxysmal atrial fibrillation (principal); R00.2 Palpitations; E78.5 Hyperlipidemia, unspecified; I63.9 Cerebral infarction, unspecified; R53.1 Weakness; R53.83 Other fatigue; Z87.891 Personal history of nicotine dependence ==

== ENCOUNTER 2023-06-27 08:10 | Outpatient (AMB) | payer BC, SELFPAY ==
--- NOTE | 2023-06-27 08:21 | A.OFFVIS_ITS ---
Vital Signs 06/27/23 08:22 Height 5 ft 10 in Weight 258 lb 6.108 oz BMI 37.1 BP 130/70 Blood Pressure Location Lt brachial Position Sitting Pulse 64 Intake Visit Reasons: 1 year follow up Family Literacy Coordinator Required: No Accompanied by: Self / Same As Patient Allergies No Known Allergies Allergy (Verified 07/05/22 08:36) Medication List - Last Reconciled 06/27/23 by Louis Goel MD apixaban (Eliquis) 5 mg PO BID rosuvastatin 10 mg PO DAILY HPI Comments Details: Enedelia returns for follow-up. Last year, she was seen in consultation regarding atrial fibrillation as well as stroke. She has had atrial fibrillation episodes many years ago, but no clear follow-up after that. She does however feel occasional palpitations. It was felt that the stroke could be possibly related to atrial fibrillation although there was also evidence of intracranial disease. Any case, she had a 30 day monitor after the discharge time and that showed atrial fibrillation episodes. Now she is on Eliquis. Overall, no new concerns since last seen. No cardiac symptoms. Main issues that she has not able to lose any weight. That bothers her. [facility] Medical History (Updated 07/05/22 @ 08:59 by Louis Goel MD) Hyperlipidemia, unspecified PAF (paroxysmal atrial fibrillation) Atrial fibrillation Family History Father Brain cancer Lung cancer Social History Household Members: Family Housing: House Do you presently have visiting nurse or other home services: No Alcohol intake: current Alcohol intake frequency: holidays/special occasions only Comment: refusing bed alarm Patient Tobacco Use Status: Former Tobacco user Tobacco use type: Cigarette e-Cigarette/Vaping Use: Never Used Second Hand Smoke Exposure: No Advance Directives Date on File: 02/23/22 service: No Review of Systems Const Denies chills, Denies fatigue, Denies fever(s), Denies frequent falls, Denies weakness, Denies weight gain and Denies weight loss ENT Denies dizziness Card Denies chest pain, Denies leg edema, Denies lightheadedness, Denies palpitations, Denies dyspnea and Denies dyspnea on exertion Resp Denies cough, Denies dyspnea and Denies dyspnea on exertion GI Denies hematochezia Musc Denies abnormal gait, Denies muscle weakness, Denies numbness, Denies radiating pain into limb and Denies tingling Neuro Denies abnormal gait, Denies dizziness, Denies frequent falls, Denies numbness, Denies tingling and Denies weakness Endo Denies fatigue and Denies palpitations Physical Exam Vital Signs: Last Vital Signs Pulse 64 06/27/23 08:22 BP 130/70 06/27/23 08:22 BMI result Body Mass Index 37.1 Const General: comfortable and no acute distress Orientation/consciousness: patient oriented x3 HEENT Other: Unremarkable Head: Yes normal to inspection Neck Neck: Yes normal visual inspection Chest Chest palpation & inspection: normal inspection of the chest Resp Auscultation: clear to auscultation bilaterally Cardio Palpation: normal PMI Heart sounds: S1 normal heart sound present, S2 normal heart sound present, no gallops, no murmurs and no rubs GI Palpation (GI): Soft to palpation Back/Spine/Pelvis Other: unremarkable Skin General skin exam: no rashes or lesions noted Neuro General: patient oriented x3 Extrem General: Yes normal to inspection Psych Mental Status: mental status grossly normal Office Procedures EKG Details: EKG with sinus rhythm at 64/Min; no significant ST-T changes and otherwise unremarkable. [place] [id number], Complete Assessment & Plan Assessment & Plan (1) Stroke: Code(s): I63.9 - Cerebral infarction, unspecified Category: Medical (2) Acute cerebral infarction: Code(s): I63.9 - Cerebral infarction, unspecified Category: Medical (3) PAF (paroxysmal atrial fibrillation): Code(s): I48.0 - Paroxysmal atrial fibrillation Category: Medical (4) Hyperlipidemia, unspecified: Code(s): E78.5 - Hyperlipidemia, unspecified Category: Medical Plan Cardiac and neurological studies reviewed. Echocardiogram with LVEF 63%. No significant valvular issues. No evidence of PFO by bubble study. 30 day monitor shows evidence of atrial fibrillation but overall, low burden. Head and neck CTA with left TAMIKO vascular territory infarct. 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 Overall, patient with obesity, dyslipidemia, paroxysmal atrial fibrillation, stroke. Stroke could be atherosclerotic in her case but due to coexisting atrial fibrillation, she is also on anticoagulation. No changes with that. Not on any specific medications for atrial fibrillation as they are not bothersome and also infrequent. With regard dyslipidemia, most recent LDL is over 100. We can go up on the Crestor to 20 mg daily. She states she will get follow-up lipids through her own PCP. Follow-up in 1 year. Medications: New rosuvastatin (Crestor) 20 mg PO DAILY 90 tabs 3RF Discontinued rosuvastatin Discontinued Reason: Doctor's Order 10 mg PO DAILY 90 tabs 1RF Coding Level of Care Code Est Pt Level 4 (15712) Diagnoses Stroke I63.9 Acute cerebral infarction I63.9 PAF (paroxysmal atrial fibrillation) I48.0 Hyperlipidemia, unspecified E78.5 CPT Codes EKG - CPT: 82916-[id number], Complete ([id number])
[2023-06-27 08:22] VITALS: BP 130/70; PULSE 64; BMI 37.1
== END 2023-06-27 08:45 | disposition home or self-care (01) ==
PROVIDERS: Visit Provider Internal Medicine
DX: I63.9 Cerebral infarction, unspecified (principal); I48.0 Paroxysmal atrial fibrillation; E78.5 Hyperlipidemia, unspecified
CPT/HCPCS: 93010; 99214

== ENCOUNTER → 2023-06-27 08:10 | Outpatient (BNVA) | payer BC, SELFPAY | PROVIDERS: Visit Provider Internal Medicine | DX: I48.0 Paroxysmal atrial fibrillation (principal); E78.5 Hyperlipidemia, unspecified; Z86.73 Personal history of transient ischemic attack (TIA), and cerebral infarction without residual deficits; Z79.01 Long term (current) use of anticoagulants | CPT/HCPCS: 93005 ==

== ENCOUNTER 2024-07-02 08:00 | Outpatient (AMB) | payer BC, SELFPAY ==
--- NOTE | 2024-07-02 08:13 | MHC.OFFVIS ---
Vital Signs 07/02/24 08:17 Height 5 ft 10 in Weight 234 lb 9.149 oz BMI 33.7 BP 120/70 Blood Pressure Location Lt brachial Position Sitting Pulse 73 Pulse Source Monitor Intake Visit Reasons: 1 year follow up [employer] Required: No Accompanied by: Self / Same As Patient Allergies No Known Allergies Allergy (Verified 07/05/22 08:36) Medication List - Last Reconciled 07/02/24 by Louis Goel MD apixaban (Eliquis) 5 mg PO BID rosuvastatin 20 mg PO DAILY HPI Comments Details: Enedelia returns for follow-up. In the past, she was seen in consultation regarding atrial fibrillation as well as stroke. She has had atrial fibrillation episodes many years ago, but no clear follow-up after that. She does however feel occasional palpitations. It was felt that the stroke could be possibly related to atrial fibrillation although there was also evidence of intracranial disease. Any case, she had a 30 day monitor after the discharge time and that showed atrial fibrillation episodes. Now she is on Eliquis. Overall, she is feeling pretty good. Palpitations extremely rare and battery last a minute. She has lost weight. [facility] Medical History (Updated 07/05/22 @ 08:59 by Louis Goel MD) Hyperlipidemia, unspecified PAF (paroxysmal atrial fibrillation) Atrial fibrillation Family History Father Brain cancer Lung cancer Social History Household Members: Family Housing: House Do you presently have visiting nurse or other home services: No Alcohol intake: current Alcohol intake frequency: holidays/special occasions only Comment: refusing bed alarm Patient Tobacco Use Status: Former Tobacco user Tobacco use type: Cigarette e-Cigarette/Vaping Use: Never Used Second Hand Smoke Exposure: No Advance Directives Date on File: 02/23/22 service: No Review of Systems Const Denies chills, Denies fatigue, Denies fever(s), Denies frequent falls, Denies weakness, Denies weight gain and Denies weight loss ENT Denies dizziness Card Denies chest pain, Denies leg edema, Denies lightheadedness, Denies palpitations, Denies dyspnea and Denies dyspnea on exertion Resp Denies cough, Denies dyspnea and Denies dyspnea on exertion GI Denies hematochezia Musc Denies abnormal gait, Denies muscle weakness, Denies numbness, Denies radiating pain into limb and Denies tingling Neuro Denies abnormal gait, Denies dizziness, Denies frequent falls, Denies numbness, Denies tingling and Denies weakness Endo Denies fatigue and Denies palpitations Physical Exam Vital Signs: Last Vital Signs Pulse 73 07/02/24 08:17 BP 120/70 07/02/24 08:17 BMI result Body Mass Index 33.7 Const General: comfortable and no acute distress Orientation/consciousness: patient oriented x3 HEENT Other: Unremarkable Head: Yes normal to inspection Neck Neck: Yes normal visual inspection Chest Chest palpation & inspection: normal inspection of the chest Resp Auscultation: clear to auscultation bilaterally Cardio Palpation: normal PMI Heart sounds: S1 normal heart sound present, S2 normal heart sound present, no gallops, no murmurs and no rubs GI Palpation (GI): Soft to palpation Back/Spine/Pelvis Other: unremarkable Skin General skin exam: no rashes or lesions noted Neuro General: patient oriented x3 Extrem General: Yes normal to inspection Psych Mental Status: mental status grossly normal Office Procedures EKG Details: EKG with underlying sinus rhythm at 73/Min; no significant ST-T changes and otherwise unremarkable[place] [id number], Complete Assessment & Plan Assessment & Plan (1) Stroke: Code(s): I63.9 - Cerebral infarction, unspecified Category: Medical (2) Acute cerebral infarction: Code(s): I63.9 - Cerebral infarction, unspecified Category: Medical (3) PAF (paroxysmal atrial fibrillation): Code(s): I48.0 - Paroxysmal atrial fibrillation Category: Medical (4) Hyperlipidemia, unspecified: Code(s): E78.5 - Hyperlipidemia, unspecified Category: Medical Plan Pertinent data reviewed. Echocardiogram with LVEF 63%. No significant valvular issues. No evidence of PFO by bubble study. 30 day monitor shows evidence of atrial fibrillation but overall, low burden. Head and neck CTA with left TAMIKO vascular territory infarct. 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 Overall, patient with obesity, dyslipidemia, paroxysmal atrial fibrillation, stroke. Stroke could be atherosclerotic in her case but due to coexisting atrial fibrillation, she is also on anticoagulation. As the palpitations are extremely infrequent, she not on any medications for the atrial fibrillation itself. Weight loss will help her the most. Otherwise, she remains on statins and she states that she gets follow-up labs through her own PCP. With regard to anticoagulation, may continue. As the labs are done through her own PCP in a different health system, prefer that refills also get done through them. Any case, asked her to forward us the labs that she states will be done soon. Follow-up in 1 year. Discussion Notes We thoroughly discussed the importance of her pending laboratory work, as the results will determine necessary adjustments in her current medications, such as the statin and Eliquis, due to the potential impact on kidney function and overall cardiovascular risk management. The patient was informed of her episodic palpitations being non-threatening at present, given the absence of concurrent symptoms. I ensured she understood the need to report any significant changes or reoccurrence of symptoms. I confirmed the plan for yearly observation unless changes necessitate earlier intervention. Patient was informed and verbally consented to the use of an ambient scribe for clinic note documentation during this visit. Patient Instructions: - Complete your blood work as soon as possible. - Remain on your current medication until your blood test results are available and reviewed. - Report any new or worsening symptoms immediately. - Coordinate with your primary care physician for medication management. - Schedule your next annual follow-up, or earlier if needed, based on any new developments. Coding Level of Care Code Est Pt Level 4 (22569) Diagnoses Stroke I63.9 Acute cerebral infarction I63.9 PAF (paroxysmal atrial fibrillation) I48.0 Hyperlipidemia, unspecified E78.5 CPT Codes EKG - CPT: [id number], Complete ([id number])
[2024-07-02 08:17] VITALS: BP 120/70; PULSE 73; BMI 33.7
== END 2024-07-02 08:30 | disposition home or self-care (01) ==
LOC: HO.HCS 08:00
PROVIDERS: PCP Internal Medicine; Visit Provider Internal Medicine
DX: I63.9 Cerebral infarction, unspecified (principal); I48.0 Paroxysmal atrial fibrillation; E78.5 Hyperlipidemia, unspecified
CPT/HCPCS: 93010; 99214

== ENCOUNTER → 2024-07-02 08:00 | Outpatient (BNVA) | payer BC, SELFPAY | PROVIDERS: PCP Internal Medicine; Visit Provider Internal Medicine | DX: I48.0 Paroxysmal atrial fibrillation (principal); E78.5 Hyperlipidemia, unspecified; Z86.73 Personal history of transient ischemic attack (TIA), and cerebral infarction without residual deficits; Z79.01 Long term (current) use of anticoagulants | CPT/HCPCS: 93005 ==